=== PATIENT | male | born 1995 | race African-American/Black ===

== ENCOUNTER 2017-08-18 20:08 | Emergency (ER) | payer OTHER, SELFPAY ==
[2017-08-18] MEDS ORDERED: Acetaminophen 325 MG TAB ONE (21:00)
[2017-08-18] MEDS ORDERED: Ketorolac Tromethamine 60 MG/2 ML VIAL ONE (21:01)
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
== END 2017-08-18 22:10 | disposition home or self-care (01) ==
LOC: ERS 20:08
DX: S40.011A Contusion of right shoulder, initial encounter (principal); S60.211A Contusion of right wrist, initial encounter; F17.210 Nicotine dependence, cigarettes, uncomplicated; V43.92XA Unspecified car occupant injured in collision with other type car in traffic accident, initial encounter
CPT/HCPCS: 71046; 96372; J1885

== ENCOUNTER 2018-03-22 22:29 | Emergency (ER) | payer OTHER, SELFPAY ==
[2018-03-22] MEDS ORDERED: Ondansetron ODT 4 MG TAB ONE (23:04)
[2018-03-22] MEDS ORDERED: Dicyclomine 20 MG TAB ONE (23:04)
== END 2018-03-22 23:55 | disposition home or self-care (01) ==
LOC: ERS 22:29
DX: R11.2 Nausea with vomiting, unspecified (principal); R19.7 Diarrhea, unspecified; J45.909 Unspecified asthma, uncomplicated; F17.210 Nicotine dependence, cigarettes, uncomplicated
CPT/HCPCS: 87804; 99283; Q0162